=== PATIENT | female | born 1980 | race Caucasian/White ===

== ENCOUNTER → 2018-12-31 09:38 | Outpatient (CLI) | payer MEDICAID ==
[2014-09-22 05:55] VITALS: BMI 39.4
[~2018-12-31 09:38] MED LIST: HYDROCODONE-APA1 TAB PO; IBUPROFEN600 MG PO; PRENAVITE1 TAB PO; PROVENTIL/2.5 MG/3 M INH
== END | disposition home or self-care (01) ==
LOC: D.US 09:38
PROVIDERS: ATTEND Surgery
DX: I82.819 Embolism and thrombosis of superficial veins of unspecified lower extremity (principal)

== ENCOUNTER 2019-01-17 08:06 | Day surgery (SDC) | payer MEDICAID ==
[~2019-01-17] VITALS: Ht 162.6 cm; Wt 70.3 kg
[~2019-01-17 08:06] MED LIST changes: +ATIVAN1 MG PO
[2019-01-17 08:23] LABS: HEMATOCRIT 34.7 % (36.0-48.0); MCH 30.2 pg (26.0-34.0); MCHC 34.6 g/dL (31.0-37.0); MCV 87.4 fL (80.0-100.0); MEAN PLATELET VOLUME 9.5 fL (7.4-10.4); RBC 3.97 10x6/uL (4.00-5.40); WBC 4.4 10x3/uL (4.8-10.8)
[2019-01-17 09:21] VITALS: BP 106/61; Ht 162.6 cm; Wt 70.3 kg
[2019-01-17 09:37] LABS: HCG URINE NEGATIVE (NEGATIVE)
--- NOTE | 2019-01-17 14:14 | NUR ---
1351-REC'D FROM RR. AWAKE AND ALERT. DRESSING TO LEFT LEG CDI. DENIES PAIN. IV PATENT TO RIGHT WRIST AT K[facility]. VSS.
--- NOTE | 2019-01-17 14:14 | NUR ---
1400-FULL LIQUID TRAY TO ROOM.
--- NOTE | 2019-01-17 15:46 | NUR ---
1445- NAUSEA WITH ONE EPISODE OF VOMITING. PER ORDERS ADMINISTERED ZOFRAN 4MG IVP. VSS. CALL LIGHT IN EASY REACH
--- NOTE | 2019-01-17 15:48 | NUR ---
1540-DISCHARGE CRITERIA MET. REMOVED IV FROM RIGHT WRIST WITH CATH INTACT, DISPOSED INTO SHARPS, COVERED WITH BANDAID. DRESSING TO RIGHT LEG CDI. DIGITS WARM TO TOUCH, CAP REFILL WNL. DENIES PAIN. REVIEWED DISCHARGE INSTRUCTIONS WITH PT AND SPOUSE, VERBALIZED UNDERSTANDING WITHOUT QUESTIONS OR COMPLAINTS. ESCORTED OUT VIA W/C WITH SPOUSE DRIVING HOME. DISCHARGE INSTRUCTIONS AND PRESCRIPTION IN HAND
--- NOTE | 2019-01-21 11:07 | OP ---
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 PROCEDURE: Stab avulsion phlebectomies of the left lower extremity times 16. SURGEON: Timothy Lucia MD MANAGER CRITICAL CARE UNIT: None. BLOOD LOSS: Less than 50 cc. ANESTHESIA: General. COMPLICATIONS: None. The risks, possible complications, and alternatives to the procedure were discussed with the patient. She elected to proceed. The discussion specifically included, but was not limited to, bleeding requiring emergency reoperation, infection, nerve injury, numbness, paresthesias, and recurrence of varicosities or persistence. OPERATIVE COURSE: The patient was conveyed to the operating room electively on 01/17/2019. General anesthesia was induced by anesthesia staff. The patient's varicosities had been marked by me, in the presence of a female nurse, in the holding area. After general anesthesia was induced, the left lower extremity was sterilely prepped and draped. The patient was supine. Small skin incisions were accomplished over the varicosities. I then inserted a phlebectomy hook. Avulsion phlebectomies were performed. At no time was there any apparent nerve injury during this procedure. A sterile dressing was applied including Coban. The patient was then extubated and conveyed to the post-anesthesia care unit, where she was in stable condition. TRANSINT:[id number] Voice Confirmation ID: [id number] DOCUMENT ID: [id number] TIMOTHY LUCIA MD at 1107 CC: [id number] DICTATION DATE: 01/18/19900 KNITTING MACHINE MECHANIC: 01/18/19 0933 [facility] 01/17/19 [place] [address]
== END 2019-01-17 15:40 | disposition home or self-care (01) ==
LOC: D.OPS 08:06 → D.PAN 10:15 → D.OPS 15:40
PROVIDERS: Anesthesiology; ATTEND Surgery
DX: I83.92 Asymptomatic varicose veins of left lower extremity (principal)

== ENCOUNTER 2019-04-27 03:27 | Emergency (ER) | payer MEDICAID ==
[~2019-04-27] VITALS: Ht 162.6 cm; Wt 68.2 kg
[2019-04-27 03:34] VITALS: Ht 162.6 cm; Wt 68.2 kg
[2019-04-27 04:07] LABS: BASOPHILS 0.2 % (0-2); EOSINOPHILS 0.2 % (0-7); HEMATOCRIT 34.5 % (36.0-48.0); HEMOGLOBIN 11.8 g/dL (12-16); IMMATURE GRANULOCYTES 0.2 % (0-5); LYMPHOCYTES 13.9 % (15-50); MCH 30.5 pg (26.0-34.0); MCHC 34.2 g/dL (31.0-37.0); MCV 89.1 fL (80.0-100.0); MEAN PLATELET VOLUME 10.1 fL (7.4-10.4); MONOCYTES 8.5 % (2-11); RBC 3.87 10x6/uL (4.00-5.40); RDW 12.6 % (11.5-14.5)
[2019-04-27 04:08] LABS: PLATELET COUNT 152 10x3/uL (130-400)
[2019-04-27 04:18] LABS: CALC OSMOLALITY 272 mosm/kg (275-300); CALCIUM 8.9 mg/dL (8.5-10.1); CARBON DIOXIDE 23.6 mmol/L (21.0-32.0); CHLORIDE - SERUM 102 mmol/L (98-107); CREATININE - SERUM 0.9 mg/dL (0.6-1.3); GLUCOSE 98 mg/dL (74-106); POTASSIUM - SERUM 3.9 mmol/L (3.5-5.1); SODIUM 137 mmol/L (136-145); UREA NITROGEN 10 mg/dL (7-18); eGFR NON AFRICAN AMERICAN 75 mL/min (90-120)
[2019-04-27 04:26] LABS: ALKALINE PHOSPHATASE 66 U/L (46-116); ALT (SGPT) 20 U/L (10-68); BILIRUBIN - TOTAL 0.22 mg/dL (0.2-1.3); PROTEIN - SERUM 7.1 g/dL (6.4-8.2); TROPONIN-I < 0.017 ng/mL (0.000-0.060)
[2019-04-27] MEDS ORDERED: OMNICEF300 MG PO (04:30)
[2019-04-27] MEDS ORDERED: ZITHROMAX500 MG PO (04:30)
[2019-04-27 05:32] VITALS: BP 112/70
== END 2019-04-27 06:33 | disposition home or self-care (01) ==
LOC: D.ER 03:27
PROVIDERS: Family Medicine
DX: J18.1 Lobar pneumonia, unspecified organism (principal); J45.909 Unspecified asthma, uncomplicated